=== PATIENT | male | born 1965 | race Hispanic/Latino ===

== ENCOUNTER 2024-01-24 01:21 | Emergency (ER) | payer SELFPAY ==
[2024-01-24] MEDS ORDERED: Lidocaine 1% (PF) 30 ML VIAL ONE (01:39)
== END 2024-01-24 05:10 | disposition home or self-care (01) ==
LOC: ERS 01:21
DX: S00.461A Insect bite (nonvenomous) of right ear, initial encounter (principal); W57.XXXA Bitten or stung by nonvenomous insect and other nonvenomous arthropods, initial encounter
CPT/HCPCS: 99282; J2001